=== PATIENT | female | born 1985 | race Asian ===

== ENCOUNTER 2024-04-23 10:39 | Emergency (ER) | payer SELFPAY ==
[~2024-04-23] VITALS: Ht 160 cm; Wt 68.0 kg
[2024-04-23 11:13] VITALS: TEMP 98.3; O2SAT 100
[2024-04-23 14:24] VITALS: BP 130/70; PULSE 80; RESP 15; O2SAT 99
== END 2024-04-23 14:35 | disposition home or self-care (01) ==
LOC: ER 10:56
DX: N64.4 Mastodynia (principal); Z90.49 Acquired absence of other specified parts of digestive tract
CPT/HCPCS: 71045; 93005; 99283